=== PATIENT | male | born 1985 | race Caucasian/White ===

== ENCOUNTER 2017-02-09 22:55 | Emergency (ER) | payer OTHER ==
[~2017-02-09] VITALS: Ht 195.6 cm; Wt 113.8 kg
[2017-02-09] MEDS ORDERED: PRILOSEC OTC20 MG PO (23:02)
[2017-03-14] MEDS ORDERED: HYDROCODON-ACE1 EAC8 PO (09:26)
== END 2017-02-09 23:31 | disposition home or self-care (01) ==
LOC: ED 22:55
PROC: 0HQ1XZZ Repair Face Skin, External Approach (ICD-10-PCS; principal; 2017-02-09)
DX: S01.112A Laceration without foreign body of left eyelid and periocular area, initial encounter (principal); W22.8XXA Striking against or struck by other objects, initial encounter; Z88.8 Allergy status to other drugs, medicaments and biological substances; Z79.899 Other long term (current) drug therapy
CPT/HCPCS: 12013; 99282